=== PATIENT | female | born 1970 | race Caucasian/White ===

== ENCOUNTER 2017-02-09 08:06 | Emergency (ER) | payer OTHER ==
[~2017-02-09] VITALS: Ht 175.3 cm; Wt 140.0 kg
[2017-02-09 08:25] VITALS: BP 177/99; PULSE 88; RESP 18; TEMP 98.5; O2SAT 98
[2017-02-09] MEDS ORDERED: UMEC1AER INH (08:47)
[2017-02-09] MEDS ORDERED: MONT10TA2 PO (08:47)
[2017-02-09] MEDS ORDERED: KETOROLAC TROMETHAMINE 60 MG/2 ML (IM) VIAL IM ONE (09:00)
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
[2017-02-09] MEDS ORDERED: IBUP800T23 PO (10:28)
[2017-02-09] MEDS ORDERED: CYCL1TAB29 PO (10:28)
[2017-02-09 10:49] VITALS: BP 164/82
== END 2017-02-09 10:55 | disposition home or self-care (01) ==
LOC: NEPC 08:06
DX: M54.5 Low back pain (principal); M25.562 Pain in left knee; M25.561 Pain in right knee; R07.9 Chest pain, unspecified; T14.8 Other injury of unspecified body region; V48.6XXA Car passenger injured in noncollision transport accident in traffic accident, initial encounter; Y92.414 Local residential or business street as the place of occurrence of the external cause; I10 Essential (primary) hypertension
CPT/HCPCS: 71020; 72072; 73564; 96372; 99284; J1885